=== PATIENT | male | born 1980 ===

== ENCOUNTER 2022-03-21 07:11 | Day surgery (SDC) | payer OTHER ==
[2022-03-21] MEDS ORDERED: MIRALAX17 GM PO (09:42)
[2022-03-21] MEDS ORDERED: KETO10TA2 PO (09:42)
[2022-03-21] MEDS ORDERED: TYLENOL ARTHRI650 MG PO (09:42)
[2022-03-21] MEDS ORDERED: TRAMADOL HCL50 MG PO (09:42)
== END 2022-03-21 15:10 | disposition home or self-care (01) ==
LOC: CIR.AMB 07:11
PROVIDERS: ATTEND Surgery
DX: K42.0 Umbilical hernia with obstruction, without gangrene (principal); Z91.013 Allergy to seafood; Z20.822 Contact with and (suspected) exposure to COVID-19
CPT/HCPCS: 49594; C1781